=== PATIENT | male | born 1950 | race African-American/Black ===

== ENCOUNTER → 2016-07-04 | Outpatient (CLI) | payer MEDICARE ==
[2015-07-26 10:54] VITALS: BP 108/73
[~2016-07-04] MED LIST: AMLO5TAB2 PO; ASPI-482 PO; BACL10TA PO; CARV6.252 PO; CLON0.2T PO; HYDR12.58 PO; MULT-658 PO; SIMV20TA3 PO; TELM80TA PO
--- NOTE | 2016-07-04 08:37 | RAD ---
Ultrasound of the abdominal aorta, 07/04/2016: History: Abdominal aortic aneurysm Duplex evaluation of the abdominal aorta was performed including grayscale, color-flow and spectral Doppler analysis. There is moderate atherosclerotic plaquing. There is mild fusiform dilatation of the distal abdominal aorta. It measures 3.2 cm in greatest diameter. There is mild intraluminal plaque or thrombus. It does not appear to extend into the iliac arteries. IMPRESSION: 3.2 cm distal abdominal aortic aneurysm. CT follow-up is suggested to assess stability and for optimal delineation.
== END | disposition home or self-care (01) ==
LOC: US 06:36
PROVIDERS: ATTEND Family Medicine
DX: Z13.6 Encounter for screening for cardiovascular disorders (principal); I71.4 Abdominal aortic aneurysm, without rupture
CPT/HCPCS: 76770